=== PATIENT | female | born 1985 | race Caucasian/White ===

== ENCOUNTER 2016-10-21 17:56 | Emergency (ER) | payer OTHER ==
[~2016-10-21] VITALS: Ht 165.1 cm; Wt 79.4 kg
--- NOTE | ~2016-10-21 | CR63 ---
[facility] A Service of [facility] & [facility] RADIOLOGY TEXT RESULTS PATIENT: CLAUDIA CAMEJO LOCATION: [place] : [birth year] UNIT #: [id number] AGE: [address]: Tuyet Doty APRN SEX: F ORDER DR: [id number] [facility] [address]. [place], [place] [address] [id number] MR#: [id number] Acc #: [id number] NAME: CLAUDIA CAMEJO : 1985 SEX: F STUDY DATE/TIME: 10/21/2016 20:30 UNIT: [facility] ROOM: STUDY DESCRIPTION: CR Chest 2 View Attending Physician: Tuyet Doty A.P.R.N. Ordering Physician: Tuyet Doty A.P.R.N. Primary Care Physician: No Primary Care Physician MEDICAL IMAGING REPORT This report is preliminary unless electronic signature is present EXAM Two-view chest INDICATION Cough for 4 days. Congestion. FINDINGS PA and lateral views of the chest compared to 10/21/2012. The heart and mediastinal contours are normal. Lungs are clear. IMPRESSION Normal chest radiograph. Dictated by... Jaime Sim M.D. THIS IS AN ELECTRONICALLY VERIFIED REPORT Jaime Sim M.D. at 10/22/2016 8:56 AM [place] TD: 10/22/2016 08:36 JOB #: [id number] MEDICAL IMAGING REPORT Page 1 of 1 COPY
[~2016-10-21 17:56] MED LIST: ANTISEPTIC SKI237 ML TP; BACTRIM DS TABL1 TA1 PO; BACTRIM DS TABL1 TA2 PO; DOXYCYCLINE HY100 M3 PO; FLEXERIL10 MG PO; IBUPROFEN800 MG PO; KEFLEX500 MG PO; MEDROL DOSEPAK4 MG PO; METHADONE PO; ORUDIS75 M1 PO; ROBAXIN 750750 M1 PO; ROBITUSSIN PE PO; SARAFEM20 M1 PO; SUBOXONE 12 MG1 EACH; SUBOXONE 8 MG-1 EACH SL; TYLENOL #3 PO; ULTRAM PO; VICODIN 5/500 T1 TAB PO; VOLTAREN75 MG PO
== END 2016-10-21 21:20 | disposition home or self-care (01) ==
LOC: CED 17:56 → CFTX 17:56
DX: J40 Bronchitis, not specified as acute or chronic (principal); J06.9 Acute upper respiratory infection, unspecified; F17.210 Nicotine dependence, cigarettes, uncomplicated
CPT/HCPCS: 71020; 87651; 94640; 99283